=== PATIENT | male | born 1995 | race Caucasian/White ===

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

== ENCOUNTER 2017-08-09 22:13 | Emergency (ER) | payer OTHER ==
[~2017-08-09] VITALS: Ht 182.9 cm; Wt 70.3 kg
[2017-08-10] MEDS ORDERED: NORCO 5/3251 TABLET PO (02:34)
[2017-08-10 02:53] VITALS: BP 143/83
== END 2017-08-10 02:54 | disposition home or self-care (01) ==
LOC: EME 22:13
PROC: 2W3QX1Z Immobilization of Right Lower Leg using Splint (ICD-10-PCS; principal; 2017-08-09)
DX: S93.401A Sprain of unspecified ligament of right ankle, initial encounter (principal); V00.131A Fall from skateboard, initial encounter; Y93.51 Activity, roller skating (inline) and skateboarding
CPT/HCPCS: 73610; 99281; 99284